=== PATIENT | female | born 1995 | race Caucasian/White ===

== ENCOUNTER 2018-01-15 17:26 | Emergency (ER) | payer MEDICAID ==
[~2018-01-15] VITALS: Ht 165.1 cm; Wt 57.0 kg
[2018-01-15] MEDS ORDERED: ACETAMINOPHEN 325MG TABLET PO ONE (19:45)
[2018-01-15] MEDS ORDERED: KETOROLAC 30MG/ML VIAL IM ONE (19:45)
[2018-01-15 20:07] VITALS: BP 134/67
== END 2018-01-15 21:34 | disposition home or self-care (01) ==
LOC: ER 18:08
DX: K08.89 Other specified disorders of teeth and supporting structures (principal); R03.0 Elevated blood-pressure reading, without diagnosis of hypertension; J32.9 Chronic sinusitis, unspecified
CPT/HCPCS: 96372; 99283; J1885

== ENCOUNTER 2018-01-16 01:59 | Emergency (ER) | payer MEDICAID ==
[~2018-01-16] VITALS: Ht 160 cm; Wt 57.0 kg
[2018-01-16] MEDS ORDERED: KETOROLAC 60MG/2ML VIAL IM ONE (06:45)
[2018-01-16 07:00] VITALS: BP 126/62
== END 2018-01-16 07:03 | disposition home or self-care (01) ==
LOC: ER 01:59
DX: K08.89 Other specified disorders of teeth and supporting structures (principal)
CPT/HCPCS: 96372; 99283; J1885